=== PATIENT | male | born 1980 ===

== ENCOUNTER 2017-09-22 14:43 | Emergency (ER) | payer OTHER ==
[2017-09-22 15:02] VITALS: BP 121/73
[2017-09-22] MEDS ORDERED: predniSONE TAB* 20 MG PO ONE (15:14)
--- NOTE | 2017-09-22 15:24 | UC ---
Skin Complaint HPI - HPI Summary HPI Summary: Conducted in [facility], patient states he started to experience small hives for the past 3 days which have become bigger and sometimes coalesce; his palms and soles are itchy as well. He states he has some tingling in his lips and tongue but no dysphagia, SOB, wheezing or blurred vision/dizziness. He found a bedbug several days ago. He states he had the same rash some years ago, denies PMH, denies asthma or lung disease - History of Current Complaint Chief Complaint: UCRash Time Seen by Provider: 09/22/17 15:02 Stated Complaint: RASH Hx Obtained From: Patient, Family/Estimator [employer] Boxes Onset/Duration: Sudden Onset, Lasting Days Skin Exposure Onset/Duration: Days Ago Timing: Constant Onset Severity: Moderate Current Severity: Severe Pain Intensity: 0 Location: Generalized Character: Pruritus, Hives Aggravating Factor(s): Nothing Alleviating Factor(s): Nothing Associated Signs & Symptoms: Positive: Negative Related History: Recent change in medication, Possible Reaction to: Insect - Allergy/Home Medications Allergies/Adverse Reactions: Allergies Allergy/AdvReac Type Severity Reaction Status Date / Time No Known Allergies Allergy Verified 09/22/17 15:02 Home Medications: Home Medications Varenicline (NF) [Chantix 1 MG TAB (NF)] 1 mg 09/22/17 [History] Review of Systems Constitutional: Negative All Other Systems Reviewed And Are Negative: Yes PMH/Surg Hx/FS Hx/Imm Hx Previously Healthy: Yes - Surgical History Surgical History: None - Social History Alcohol Use: Occasionally Substance Use Type: None Smoking Status (MU): Light Every Day Tobacco Smoker Physical Exam Triage Information Reviewed: Yes Appearance: Well-Appearing, Well-Nourished Vital Signs: Initial Vital Signs Temp 98.6 F 09/22/17 14:57 Pulse 93 09/22/17 14:57 Resp 18 09/22/17 14:57 BP 121/73 09/22/17 14:57 Pulse Ox 97 09/22/17 14:57 Vital Signs Reviewed: Yes Eyes: Positive: Conjunctiva Clear ENT: Positive: Hearing grossly normal, Pharynx normal Neck: Positive: Supple, Nontender, No Lymphadenopathy Respiratory: Positive: Chest non-tender, Lungs clear, Normal breath sounds, No respiratory distress, No accessory muscle use Cardiovascular: Positive: RRR, No Murmur, Pulses Normal, Brisk Capillary Refill Abdomen Description: Positive: Nontender Bowel Sounds: Positive: Present Skin Exam: Other - Hives on extremities , trunk and face. Erythema of palms and soles. Course/Dx - Diagnoses Provider Diagnoses: Urticaria Discharge - Sign-Out/Discharge Documenting (check all that apply): Discharge/Admit/Transfer - Discharge Plan Condition: Stable Disposition: HOME Prescriptions: hydrOXYzine HCL TAB* [Atarax 25 MG TAB*] 25 mg PO BEDTIME PRN #10 tab PRN Reason: Pruritis predniSONE TAB* [Deltasone TAB*] 50 mg PO DAILY WITH MEAL #5 tab Patient Education Materials: Urticaria (ED), Prednisone (By mouth), Hydroxyzine (By mouth) Referrals: Clara Nieto MD [Primary Care Provider] - - Billing Disposition and Condition Condition: STABLE Disposition: Home
== END 2017-09-22 15:34 | disposition home or self-care (01) ==
LOC: UCEAST 14:43
DX: L50.9 Urticaria, unspecified (principal); F17.200 Nicotine dependence, unspecified, uncomplicated
CPT/HCPCS: 99202; G0463; J7512